=== PATIENT | female | born 1965 | race Caucasian/White ===

== ENCOUNTER 2019-12-17 18:44 | Emergency (ER) | payer MEDICAID ==
[~2019-12-17] VITALS: Ht 152.4 cm; Wt 67.1 kg
[~2019-12-17 18:44] MED LIST: BP MEDS; LEVO0.114 PO; METF500T PO; [UNRECOGNIZED DRUG - REMARK]
[2019-12-17 18:48] VITALS: BP 161/69
[2019-12-17] MEDS ORDERED: KETOROLAC 15 MG/ML VIAL IM ONE (19:20)
[2019-12-17 19:45] VITALS: BP 161/69
== END 2019-12-17 19:45 | disposition home or self-care (01) ==
LOC: MED 18:44
DX: M54.2 Cervicalgia (principal); I10 Essential (primary) hypertension; E07.9 Disorder of thyroid, unspecified; Z79.899 Other long term (current) drug therapy
CPT/HCPCS: 96372; 99283; J1885